=== PATIENT | female | born 1985 | race Caucasian/White ===

== ENCOUNTER 2018-09-17 07:34 | Emergency (ER) | payer OTHER ==
[2018-09-17 08:57] LABS: HIV (1/2) Antibody/Antigen Non-Reactive (NonReactive); HIV 1/2 INDEX 0.09 S/CO (<1.00); Hep C IgG Ab Non-Reactive (NonReactive); Hep C Index 0.49 S/CO (0-0.79)
[2018-09-17 10:15] LABS: Hep B Surf AB Reactive (NonReactive)
[2018-09-17 10:16] LABS: HBSAB Concentration 157.65 mIU/mL
== END 2018-09-17 08:12 | disposition home or self-care (01) ==
LOC: ERS 07:34
DX: Z77.21 Contact with and (suspected) exposure to potentially hazardous body fluids (principal); F41.9 Anxiety disorder, unspecified; F32.9 Major depressive disorder, single episode, unspecified
CPT/HCPCS: 36415; 86706; 86803; 87389; 99283

== ENCOUNTER 2019-12-02 12:35 | Outpatient (CLI) | payer OTHER ==
[~2019-12-02 12:35] MED LIST: Iopamidol 300 61% 50 ML VIAL FS ONE
[2019-12-02 13:35] LABS: BHCG - Serum Negative (NEGATIVE); Pregs Control Background? CLEAR/WHITE (CLR/WHITE); Pregs Control Bar Appear? YES (CONTROL BAR)
[2019-12-02 13:38] LABS: Follow-up Chemistry Comp? YES
--- NOTE | 2019-12-02 15:56 | RAD ---
Hysterosalpingogram HISTORY: Infertility. FINDINGS: After explaining the procedure and answering all questions, the uterine cervix was carefull y exposed and prepped. HSG catheter was inserted and balloon inflated in the lower uterine segment. Approximately 8 cc of Isovue contrast was carefully instilled into the endometrial cavity showing nor mal capacity and contour. There was early opacification and free spill from the right fallopian tube. Some delay in opacification of the left fallopian tube, with persistent gentle pressure required to c ompletely opacify the left tube and show free spill. The uterus sits predominantly to the right of midline, with the left tube somewhat elongated and stretching across the pelvis. The excess contrast was aspirated and catheter removed. Patient tolerated the procedure well and was dismissed in good condition. IMPRESSION: Slight delay in opacification and spill from the left fallopian tube which was achieved w ith gentle consistent pressure. Each fallopian tube is patent without significant abnormality demonstrated.
== END 2019-12-02 12:36 | disposition home or self-care (01) ==
LOC: RAD 12:35
PROVIDERS: ATTEND Obstetrics & Gynecology
DX: Z31.41 Encounter for fertility testing (principal); N83.8 Other noninflammatory disorders of ovary, fallopian tube and broad ligament
CPT/HCPCS: 58340; 74740; 84703; Q9967

== ENCOUNTER 2020-03-06 14:41 | Outpatient (CLI) | payer OTHER ==
--- NOTE | 2020-03-06 15:20 | MMO ---
Bilateral MAMMO Bilat Diag [facility]. CLINICAL HISTORY: Patient is 34 years old and is seen for diagnostic exam and lump or thickening in the left breast at 6 o'clock. The patient has no family history of breast cancer. The patient has no personal history of cancer. VIEWS: The views performed were: bilateral craniocaudal with tomosynthesis; bilateral mediolateral oblique with tomosynthesis; and bilateral mediolateral with tomosynthesis. FILMS COMPARED: The present examination has been compared to a prior imaging study performed at [facility] on 03/06/2020. This study has been interpreted with the assistance of computer-aided detection. MAMMOGRAM FINDINGS: The breasts are extremely dense, which may lower the sensitivity of mammography. Finding 1: There are multiple low density, oval masses of varying size with obscured margins seen in both breasts. Finding 2: There are a few fat containing, oval masses seen in the left breast. Finding 3: There is a 5mm circumscribed nodule at the inner lower left breast in the region of palpable concern. The mass was shown to be a cyst on ultrasound. There are no suspicious masses, suspicious calcifications, or areas of architectural distortion. IMPRESSION: THERE IS NO MAMMOGRAPHIC EVIDENCE OF MALIGNANCY. A ROUTINE FOLLOW-UP MAMMOGRAM AT AGE 42 IS RECOMMENDED. THE RESULTS OF THIS EXAM WERE SENT TO THE PATIENT. ACR BI-RADS Category 2 - Benign finding MAMMOGRAPHY NOTE: 1. A negative mammogram report should not delay a biopsy if a dominant of clinically suspicious mass is present. 2. Approximately 10% to 15% of breast cancers are not detected by mammography. 3. Adenosis and dense breasts may obscure an underlying neoplasm. Reported by: NISSA WOLF MD Electonically Signed: [id number]
--- NOTE | 2020-03-06 15:22 | MMO ---
Left US Breast Limited Lt. CLINICAL HISTORY: Patient is 34 years old and is seen for . VIEWS: The views performed were: . FILMS COMPARED: The present examination has been compared to a prior imaging study performed at [facility] on 03/06/2020. This study has been interpreted with the assistance of computer-aided detection. LEFT BREAST ULTRASOUND FINDINGS: There is a simple cyst measuring 6 millimeters seen in the left breast at 5 o'clock. This corresponds to the palpable finding. On ultrasound, no suspicious findings are identified. IMPRESSION: THERE IS NO MAMMOGRAPHIC EVIDENCE OF MALIGNANCY. A ROUTINE FOLLOW-UP MAMMOGRAM AT AGE 42 IS RECOMMENDED. THE RESULTS OF THIS EXAM WERE SENT TO THE PATIENT. ACR BI-RADS Category 2 - Benign finding MAMMOGRAPHY NOTE: 1. A negative mammogram report should not delay a biopsy if a dominant of clinically suspicious mass is present. 2. Approximately 10% to 15% of breast cancers are not detected by mammography. 3. Adenosis and dense breasts may obscure an underlying neoplasm. Reported by: NISSA WOLF MD Electonically Signed: [id number]
== END 2020-03-06 14:42 | disposition home or self-care (01) ==
LOC: BICMAMMO 14:41
PROVIDERS: ATTEND Obstetrics & Gynecology
DX: N63.20 Unspecified lump in the left breast, unspecified quadrant (principal)
CPT/HCPCS: 77066; G0279